=== PATIENT | female | born 1990 | race Caucasian/White ===

== ENCOUNTER 2021-03-31 19:47 | Emergency (ER) | payer OTHER ==
[~2021-03-31 19:47] MED LIST: IBUPROFEN800 MG PO; KEFLEX CAP 500500 MG PO; NORCO 5-325 TA1 EACH PO; PERCOCET 5/325 T1 EA PO; PROVENTIL HFA 61 INH INH; VITAMIN C500 M1 PO; ZOFRAN4 MG PO
== END 2021-03-31 21:35 | disposition home or self-care (01) ==
LOC: ER1 19:47
DX: R20.0 Anesthesia of skin (principal); M79.604 Pain in right leg; Z90.49 Acquired absence of other specified parts of digestive tract; Z90.89 Acquired absence of other organs
CPT/HCPCS: 99283

== ENCOUNTER 2021-07-29 22:05 | Emergency (ER) | payer OTHER | END 2021-07-29 23:23 | disposition home or self-care (01) | LOC: ER1 22:05 | DX: M54.50 Low back pain, unspecified (principal); F17.200 Nicotine dependence, unspecified, uncomplicated; Z88.1 Allergy status to other antibiotic agents | CPT/HCPCS: 99283 ==

== ENCOUNTER 2021-08-06 11:15 | Emergency (ER) | payer OTHER ==
[2021-08-06] MEDS ORDERED: MEDROL DOSEPAK 24 MG PO (12:52)
[2021-08-06] MEDS ORDERED: CYCLOBENZAPRINE10 MG PO (12:52)
== END 2021-08-06 13:05 | disposition home or self-care (01) ==
LOC: ER1 11:15
DX: M51.36 Other intervertebral disc degeneration, lumbar region (principal); Z88.1 Allergy status to other antibiotic agents; F17.200 Nicotine dependence, unspecified, uncomplicated
CPT/HCPCS: 96372; 99283; J1100; J1885